=== PATIENT | female | born 1935 | race Asian ===

== ENCOUNTER 2017-12-10 07:33 | Emergency (ER) | payer SELFPAY ==
[~2017-12-10] VITALS: Ht 162.6 cm; Wt 66.1 kg
[2017-12-10] MEDS ORDERED: SODIUM CHLORIDE 0.9% 1,000 ML IV ONE (08:26)
[2017-12-10] MEDS ORDERED: KETOROLAC 15MG/ML VIAL IV ONE (08:30)
[2017-12-10 08:45] LABS: CLARITY URINE CLEAR (CLEAR); COLOR URINE YELLOW (YELLOW); KETONES URINE NEGATIVE (NEGATIVE); LEUKOCYTE ESTERASE URINE TRACE (NEGATIVE); NITRITE URINE NEGATIVE (NEGATIVE); OCCULT BLOOD URINE NEGATIVE (NEGATIVE); PH URINE 6.5 (4.5-8.0); PROTEIN URINE NEGATIVE (NEGATIVE); SPECIFIC GRAVITY URINE 1.018 (1.005-1.030); UROBILINOGEN URINE 0.2 E.U./dL (0.2-1.0)
[2017-12-10 08:51] LABS: BASOPHILS % 1.2 % (0.0-2.0); EOSINOPHILS % 2.5 % (0.0-5.0); HEMATOCRIT. 35.9 % (36.0-48.0); HEMOGLOBIN. 12.1 g/dL (12.0-16.0); LYMPHOCYTES % 24.1 % (20.0-50.0); MEAN CORPUSCULAR HEMOGLOBIN 29.8 pg (28.0-32.0); MEAN CORPUSCULAR VOLUME 88.5 fL (81.0-99.0); MEAN PLATELET VOLUME 8.1 fl (7.4-10.4); MONOCYTES % 8.3 % (2.0-8.0); NEUTROPHILS % 63.9 % (40.0-76.0); PLATELET 266 x1000/uL (130-400); RED BLOOD CELL COUNT 4.05 mill/uL (4.2-5.4)
[2017-12-10 08:59] LABS: CHLORIDE 105 mEq/L (98-107)
[2017-12-10 09:01] LABS: PARTIAL THROMBOPLASTIN TIME 25.4 sec (23.4-31.0)
[2017-12-10 12:31] VITALS: BP 177/65
== END 2017-12-10 12:32 | disposition home or self-care (01) ==
LOC: ER 07:33
DX: K57.90 Diverticulosis of intestine, part unspecified, without perforation or abscess without bleeding (principal); K59.00 Constipation, unspecified; I10 Essential (primary) hypertension; E78.00 Pure hypercholesterolemia, unspecified; Z87.440 Personal history of urinary (tract) infections; Z90.710 Acquired absence of both cervix and uterus
CPT/HCPCS: 36415; 71045; 74176; 80053; 81003; 85025; 85610; 85730; 86850; 86900; 86901; 87077; 87086; 87186; 93005; 96374; 99285; J1885; J7030; Z7610